=== PATIENT | female | born 1985 | race Caucasian/White ===

== ENCOUNTER 2020-07-20 12:50 | Outpatient (REF) | payer BC, SELFPAY ==
--- NOTE | 2020-07-20 12:57 | MM_ITS ---
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 The lifetime risk of breast cancer based on the Tyrer-Cuzick Model is 27.6%. COMPARISON: Mammography: 07/17/2019 and studies dating back to 07/12/2018. TECHNIQUE: Digital breast tomosynthesis is performed in both the craniocaudal and mediolateral oblique views along with computer-aided detection (CAD). Synthesized 2D images are generated from the tomosynthesis. Additional spot magnification views of the left breast in craniocaudal and 90-degree mediolateral views. FINDINGS: The breasts are extremely dense, which lowers the sensitivity of mammography (ACR BI-RADS breast composition Category d). Stable grouping of calcifications is seen within the deep upper outer aspect of the left breast. 2 stable right breast well-circumscribed lipomas are noted. No new abnormal dominant mass or suspicious grouping of microcalcifications identified. Results are discussed with the patient at time of visit. MM/MM tomosynthesis diagnostic BI IMPRESSION: There are no significant changes from prior study. ASSESSMENT: BI-RADS 2: Benign. RECOMMENDATION: Routine annual mammography screening due in 12 months. This patient's information was entered into a reminder system with a target due date for their next mammogram.
--- NOTE | 2020-07-20 13:00 | US_ITS ---
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 The lifetime risk of breast cancer based on the Tyrer-Cuzick Model is 27.6%. COMPARISON: Mammography: 07/17/2019 and studies dating back to 07/12/2018. TECHNIQUE: Digital breast tomosynthesis is performed in both the craniocaudal and mediolateral oblique views along with computer-aided detection (CAD). Synthesized 2D images are generated from the tomosynthesis. Additional spot magnification views of the left breast in craniocaudal and 90-degree mediolateral views. FINDINGS: The breasts are extremely dense, which lowers the sensitivity of mammography (ACR BI-RADS breast composition Category d). Stable grouping of calcifications is seen within the deep upper outer aspect of the left breast. 2 stable right breast well-circumscribed lipomas are noted. No new abnormal dominant mass or suspicious grouping of microcalcifications identified. Results are discussed with the patient at time of visit. US/US breast LT limited IMPRESSION: There are no significant changes from prior study. ASSESSMENT: BI-RADS 2: Benign. RECOMMENDATION: Routine annual mammography screening due in 12 months. This patient's information was entered into a reminder system with a target due date for their next mammogram.
== END 2020-07-20 12:51 | disposition home or self-care (01) ==
LOC: HO.MAMMO 12:50
PROVIDERS: PCP Pediatrics; Visit Provider Pediatrics
DX: R92.1 Mammographic calcification found on diagnostic imaging of breast (principal)
CPT/HCPCS: 76642; 77062; 77066

== ENCOUNTER 2023-10-26 13:43 | Outpatient (REF) | payer OTHER, SELFPAY ==
--- NOTE | ~2023-10-26 | MM_ITS ---
EXAMINATION: MM DIAGNOSTIC DIGITAL BREAST TOMOSYNTHESIS, BILATERAL US BREAST LIMITED, RIGHT MAMMOGRAPHY: CLINICAL INFORMATION: 38-year-old female, history of left breast excisional biopsy for benign fibroadenoma complaining of right breast palpable abnormality in the 12:00 axis. Patient also here for bilateral screening. Patient has positive family history and elevated risk of breast cancer, with prior Tyrer-Cuzick model of 27.6% COMPARISON: Mammography: 07/20/2020, 07/17/2019, 01/11/2019, 07/12/2018. ULTRASOUND: Left breast 07/20/2020, left breast 07/17/2019, left breast 01/11/2019, and 07/12/2018. Left breast also scanned 04/08/2014. TECHNIQUE: Digital breast tomosynthesis is performed in both the craniocaudal and mediolateral oblique views along with computer-aided detection (CAD). Synthesized 2D images are generated from the tomosynthesis. In addition to standard views, spot compression RIGHT CC and right MLO 3-D views were obtained of the region of palpable concern. FINDINGS: The breasts are extremely dense, which lowers the sensitivity of mammography (ACR BI-RADS breast composition Category d). Within the 12:00 axis of the right breast, there is a 2.2 cm lipoma which appears to be abutting the BB marker placed by the technologist indicating the palpable focus of concern. This may correlate. This region will be interrogated by ultrasound. Otherwise, no suspicious masses, suspicious grouped calcifications, or areas of architectural distortion in either breast. The overall extremely dense parenchymal pattern is stable from prior exams. ULTRASOUND: CLINICAL INFORMATION: As above. COMPARISON: Left breast 07/20/2020, left breast 07/17/2019, left breast 01/11/2019, and 07/12/2018. Left breast also scanned 04/08/2014. No right breast ultrasound to compare. TECHNIQUE: Targeted sonographic evaluation was performed using a high frequency linear transducer. Attention was given to the right breast 12:00 axis in the region of palpable concern. Selected archived documentation. FINDINGS: RIGHT BREAST: There is extremely dense breast tissue present. In the 12:00 axis of the right breast, 2 cm from the nipple, there is an oval circumscribed fatty mass, slightly hyperechoic to subcutaneous breast fat, without soft tissue elements or internal color Doppler signal, well circumscribed with good through transmission. This measures 2.2 x 2.7 x 1.0 cm. This is consistent with the lipoma seen on the mammogram. This is a benign finding. No evidence of solid suspicious mass, abnormal shadowing, cystic abnormality, or edema within the soft tissue planes. MM/MM tomosynthesis diagnostic BI IMPRESSION: There are no findings suspicious for malignancy in either breast. Patient has extremely dense breast parenchyma and is high risk. Palpable abnormality 12:00 right breast appears to correlate with a benign lipoma measuring up to 2.2 x 2.7 x 1.0 cm. No further follow-up needed. Recommend the patient resume annual screening at age 40, or earlier as risk factors dictate. MRI is also a screening adjunct to consider in this high-risk patient. OVERALL ASSESSMENT: Mammography: BI-RADS 2 - Benign Findings Ultrasound: BI-RADS 2 - Benign Findings RECOMMENDATION: Mammo at 40 or earlier if clinically needed Results were provided to the patient at time of visit by the technologist.
== END 2023-10-26 13:44 | disposition home or self-care (01) ==
LOC: HO.MAMMO 13:43
PROVIDERS: PCP Pediatrics; Visit Provider Pediatrics
DX: N64.9 Disorder of breast, unspecified (principal)
CPT/HCPCS: 76642; 77062; 77066

== ENCOUNTER → 2023-10-26 14:30 | Outpatient (BNV) | payer OTHER, SELFPAY | PROVIDERS: PCP Pediatrics; Visit Provider Radiology Diagnostic Radiology | DX: N63.15 Unspecified lump in the right breast, overlapping quadrants (principal); Z80.3 Family history of malignant neoplasm of breast | CPT/HCPCS: 76642; 77062; 77066 ==